=== PATIENT | male | born 1955 ===

== ENCOUNTER 2025-01-22 07:00 | Day surgery (SDC) | payer OTHER ==
[2025-01-18 08:04] VITALS: BP 120/77
[2025-01-18 08:14] LABS: BASO % 1.2 % (0.1-1.2); EOS # 0.45 (0.04-0.54); EOS % 6.1 % (0.7-7.0); LYMPH # 1.68 (1.18-3.74); LYMPH % 22.8 % (19.3-53.1); MEAN PLATELET VOLUME 10.00 fl (9.4-12.4); MONO # 0.85 (0.24-0.82); MONO % 11.5 % (4.7-12.5); NEUT # 4.29 (1.56-6.13); NEUT % 58.1 % (34.0-71.1); RED CELL DISTRIBUTION WIDTH 15.1 % (11.6-14.4)
[2025-01-18 09:00] LABS: ALT/SGPT 27.0 U/L (12-78); AST/SGOT 21.0 U/L (15-37); BILIRUBIN TOTAL 0.39 mg/dL (0.3-1.2); BUN CREA RATIO 17.0 (7.0-25.0); CREATININE SERUM 2.29 mg/dL (0.70-1.30); GFR 28.31; GLOBULINA 3.2 G/DL (2.4-3.5); GLUCOSE FASTING 97.0 mg/dL (65-100); OSMOLALITY SERUM 295.0 MOSM/KG (275-295)
[2025-01-18 09:10] LABS: INR 1.01
[~2025-01-22] VITALS: Ht 167.6 cm; Wt 68.5 kg
[~2025-01-22 07:00] MED LIST: ADULT LOW DOSE81 M1; AMLODIPINE-OLM1 EAC3; ATORVASTATIN CA40 MG; CALCITRIOL0.25 MCG; CANDESARTAN CILE8 MG; JARDIANCE10 MG; LASIX20 MG; SODIUM BICARBO650 MG; VITAMINA D3; ZYLOPRIM100 M1
[2025-01-22] MEDS ORDERED: DIPHENHYDRAMINE HCL 50 MG/ML VIAL 1ML IV ONE (09:00)
[2025-01-22] MEDS ORDERED: MIDAZOLAM HCL 2 MG/2 ML VIAL IV ONE (09:00)
[2025-01-22] MEDS ORDERED: fentaNYL CITRATE 50 MCG/ML AMPUL IV PUSH ONE (09:00)
== END 2025-01-22 10:00 | disposition home or self-care (01) ==
LOC: CIR.AMB 07:00
PROVIDERS: ATTEND Internal Medicine
DX: D12.0 Benign neoplasm of cecum (principal); K63.5 Polyp of colon; K57.30 Diverticulosis of large intestine without perforation or abscess without bleeding; D64.9 Anemia, unspecified; K29.50 Unspecified chronic gastritis without bleeding; B96.81 Helicobacter pylori [H. pylori] as the cause of diseases classified elsewhere; Z88.2 Allergy status to sulfonamides